=== PATIENT | male | born 1955 | race Caucasian/White ===

== ENCOUNTER 2021-08-19 14:04 | Inpatient (IN) | payer MEDICARE ==
[~2021-08-19] VITALS: Ht 183 cm; Wt 120.0 kg
[~2021-08-19 14:04] MED LIST: ASCORBIC ACID500 MG PO; ASPIRIN EC81 MG PO; BACTRIM DS TAB1 EACH PO; DUONEB 2.5-0.5M1 AMP INH; HEPARIN 10 UNIT/ML IV; KEFLEX250 MG PO; LEVAQUIN750 MG PO; NEBULIZER UNIT NEB; PREDNISONE 20MG20 MG PO; PROBIOTIC ACID1 EAC3 PO; SYNTHROID125 MCG PO; SYNTHROID25 MCG PO; VANCOMYCIN2 GM/5001 IV; VIBRAMYCIN100 M1 PO; VITAMIN B122500 MC1 PO; VITAMIN D3 COM1 EACH PO
[2021-08-19 16:46] LABS: BASOPHIL 0.6 % (0-2); EOSINOPHIL 0.4 % (0-7); HCT 50.4 % (42.0-52.0); HGB 16.6 g/dl (13.2-18.0); LYMPHOCYTE 8.8 % (15-48); MCH 29.2 pg (25.0-31.0); MCHC 32.9 g/dL (32.0-36.0); MCV 88.7 fL (78.0-100.0); MONOCYTE 9.6 % (0-12); MPV 10.4 fL (6.0-9.5); NEUTROPHIL 79.5 % (41-80); NRBC 0; PLT 255 K/uL (150-400); RBC 5.68 M/uL (4.70-6.00); RDW 13.2 % (11.5-14.0); WBC 13.5 K/uL (4.0-10.5)
[2021-08-19 17:08] LABS: BUN/CREAT RATIO (CALC) 27.2 RATIO; CREATININE 1.03 mg/dL (0.67-1.17); POTASSIUM 4.7 mmol/L (3.5-5.1)
[2021-08-19] MEDS ORDERED: SYNTHROID25 MCG PO (22:28)
[2021-08-19] MEDS ORDERED: ATORVASTATIN CA10 MG PO (22:29)
[2021-08-19] MEDS ORDERED: SINGULAIR10 MG PO (22:30)
[2021-08-20 06:23] LABS: BASOPHIL 0.7 % (0-2); EOSINOPHIL 1.5 % (0-7); HCT 44.7 % (42.0-52.0); HGB 14.7 g/dl (13.2-18.0); LYMPHOCYTE 11.6 % (15-48); MCH 28.8 pg (25.0-31.0); MCHC 32.9 g/dL (32.0-36.0); MCV 87.6 fL (78.0-100.0); MONOCYTE 11.3 % (0-12); MPV 10.3 fL (6.0-9.5); NEUTROPHIL 73.7 % (41-80); NRBC 0; PLT 258 K/uL (150-400); RDW 13.2 % (11.5-14.0)
[2021-08-20 06:34] LABS: WBC 9.5 K/uL (4.0-10.5)
[2021-08-20 06:46] LABS: BUN/CREAT RATIO (CALC) 29.3 RATIO; CREATININE 0.75 mg/dL (0.67-1.17); POTASSIUM 3.9 mmol/L (3.5-5.1)
[2021-08-22 06:07] LABS: BASOPHIL 1.1 % (0-2); EOSINOPHIL 2.5 % (0-7); HCT 45.4 % (42.0-52.0); HGB 15.1 g/dl (13.2-18.0); MCH 29.4 pg (25.0-31.0); MCHC 33.3 g/dL (32.0-36.0); MCV 88.3 fL (78.0-100.0); MONOCYTE 10.3 % (0-12); MPV 9.8 fL (6.0-9.5); NEUTROPHIL 60.5 % (41-80); NRBC 0; PLT 224 K/uL (150-400); RBC 5.14 M/uL (4.70-6.00); RDW 13.2 % (11.5-14.0); WBC 9.6 K/uL (4.0-10.5)
[2021-08-22 06:12] LABS: LYMPHOCYTE 23.3 % (15-48)
[2021-08-22 06:27] LABS: BUN/CREAT RATIO (CALC) 14.8 RATIO; C-REACTIVE PROTEIN 6.3 mg/dL (<=0.90); CREATININE 0.88 mg/dL (0.67-1.17); MAGNESIUM 1.7 mg/dL (1.8-2.4); POTASSIUM 4.2 mmol/L (3.5-5.1)
[2021-08-24 06:39] LABS: BASOPHIL 0.9 % (0-2); EOSINOPHIL 2.4 % (0-7); HCT 46.2 % (42.0-52.0); HGB 15.1 g/dl (13.2-18.0); LYMPHOCYTE 19.2 % (15-48); MCH 28.9 pg (25.0-31.0); MCHC 32.7 g/dL (32.0-36.0); MCV 88.5 fL (78.0-100.0); MONOCYTE 10.4 % (0-12); MPV 9.9 fL (6.0-9.5); NEUTROPHIL 63.6 % (41-80); NRBC 0; PLT 222 K/uL (150-400); RBC 5.22 M/uL (4.70-6.00); RDW 13.2 % (11.5-14.0); WBC 10.1 K/uL (4.0-10.5)
[2021-08-24 06:59] LABS: BUN/CREAT RATIO (CALC) 8.7 RATIO; C-REACTIVE PROTEIN 3.6 mg/dL (<=0.90); CREATININE 1.15 mg/dL (0.67-1.17); MAGNESIUM 1.8 mg/dL (1.8-2.4); POTASSIUM 3.9 mmol/L (3.5-5.1)
[2021-08-25 05:00] LABS: BASOPHIL 0.7 % (0-2); EOSINOPHIL 2.3 % (0-7); HCT 46.9 % (42.0-52.0); HGB 15.4 g/dl (13.2-18.0); LYMPHOCYTE 19.1 % (15-48); MCHC 32.8 g/dL (32.0-36.0); MCV 88.3 fL (78.0-100.0); MONOCYTE 11.6 % (0-12); MPV 9.7 fL (6.0-9.5); NRBC 0; PLT 209 K/uL (150-400); RBC 5.31 M/uL (4.70-6.00); RDW 13.2 % (11.5-14.0); WBC 9.9 K/uL (4.0-10.5)
[2021-08-25 05:24] LABS: BUN/CREAT RATIO (CALC) 9.5 RATIO; CREATININE 1.26 mg/dL (0.67-1.17); POTASSIUM 3.8 mmol/L (3.5-5.1)
[2021-08-25 05:29] LABS: VANCOMYCIN, TROUGH 25.9 ug/mL (10-20)
[2021-08-26 06:12] LABS: BASOPHIL 0.6 % (0-2); EOSINOPHIL 2.4 % (0-7); HCT 46.7 % (42.0-52.0); HGB 14.9 g/dl (13.2-18.0); LYMPHOCYTE 20.7 % (15-48); MCH 28.7 pg (25.0-31.0); MCHC 31.9 g/dL (32.0-36.0); MCV 89.8 fL (78.0-100.0); MONOCYTE 9.7 % (0-12); MPV 9.9 fL (6.0-9.5); NEUTROPHIL 64.3 % (41-80); NRBC 0; PLT 262 K/uL (150-400); RDW 13.2 % (11.5-14.0); WBC 10.3 K/uL (4.0-10.5)
[2021-08-26 06:53] LABS: BUN/CREAT RATIO (CALC) 7.5 RATIO; C-REACTIVE PROTEIN 3.2 mg/dL (<=0.90); CREATININE 1.33 mg/dL (0.67-1.17); MAGNESIUM 1.9 mg/dL (1.8-2.4); POTASSIUM 3.9 mmol/L (3.5-5.1)
[2021-08-27] MEDS ORDERED: NOVOLOG FL100 UNIT/1 SC (13:41)
[2021-08-27] MEDS ORDERED: METFORMIN HCL500 MG PO (13:43)
[2021-08-27] MEDS ORDERED: GLUCOTROL XL5 MG PO (13:43)
== END 2021-08-27 15:08 | disposition home health service (06) | DRG 623 ==
LOC: FER 14:04 → FMS 20:48
PROVIDERS: Nurse Practitioner; Nurse Practitioner Family; Surgery; ADMIT Internal Medicine
PROC: 0HBRXZZ Excision of Toe Nail, External Approach (ICD-10-PCS; 2021-08-21)
PROC: 0LBW0ZZ Excision of Left Foot Tendon, Open Approach (ICD-10-PCS; principal; 2021-08-21 13:00)
PROC: 05HY33Z Insertion of Infusion Device into Upper Vein, Percutaneous Approach (ICD-10-PCS; 2021-08-22)
DX: E11.621 Type 2 diabetes mellitus with foot ulcer (principal); E11.52 Type 2 diabetes mellitus with diabetic peripheral angiopathy with gangrene; L03.116 Cellulitis of left lower limb; R78.81 Bacteremia; L97.429 Non-pressure chronic ulcer of left heel and midfoot with unspecified severity; L97.529 Non-pressure chronic ulcer of other part of left foot with unspecified severity; Z20.822 Contact with and (suspected) exposure to COVID-19; B95.1 Streptococcus, group B, as the cause of diseases classified elsewhere; B96.89 Other specified bacterial agents as the cause of diseases classified elsewhere; B95.4 Other streptococcus as the cause of diseases classified elsewhere; E03.9 Hypothyroidism, unspecified; G47.33 Obstructive sleep apnea (adult) (pediatric); N17.9 Acute kidney failure, unspecified; E11.65 Type 2 diabetes mellitus with hyperglycemia; F17.200 Nicotine dependence, unspecified, uncomplicated; E78.5 Hyperlipidemia, unspecified; Z90.49 Acquired absence of other specified parts of digestive tract; Z98.890 Other specified postprocedural states; Z79.899 Other long term (current) drug therapy; Z99.81 Dependence on supplemental oxygen
CPT/HCPCS: 36415; 73700; 73718; 80048; 80061; 80202; 82009; 82962; 83036; 83605; 83735; 83880; 84145; 84443; 85025; 86140; 87040; 87070; 87075; 87077; 87205; 94660; 94668; 97162; 97530-GP; J0696; J1650; J2250; J2405; J2543; J2704; J3010; J3370; J7030; J7040; J7050; J7120; U0002